=== PATIENT | male | born 1980 | race Caucasian/White ===

== ENCOUNTER → 2017-06-07 | Outpatient (CLI) | payer OTHER ==
[~2017-06-07] MED LIST: AMLO-114 PO; ANXIETY MED; LISI-725 PO; TRAM-10 PO
[2017-06-07 09:52] LABS: COLLECTION PROBLEM N; DAYS OF ABSTINENCE 2; METHOD OF COLLECTION MASTURBATION; SEMEN COLOR GRAY OR GRAY-WHITE (GRY/GRYWHTE); SEMEN TIME OF COLLECTION 815; SEMEN VOLUME 2.9 ML (>1.5); TYPE OF SPECIMEN CONTAINER STERILE
[2017-06-07 14:34] LABS: SPERM VIABILITY STAIN NOT INDICATED % (>58%)
== END | disposition home or self-care (01) ==
LOC: C.LAB 09:24
PROVIDERS: ATTEND Specialist
DX: Z11.3 Encounter for screening for infections with a predominantly sexual mode of transmission (principal); Z11.4 Encounter for screening for human immunodeficiency virus [HIV]; Z11.59 Encounter for screening for other viral diseases

== ENCOUNTER 2024-07-08 08:18 | Observation (INO) ==
--- OUTSIDE RECORDS SUMMARY | 2024-07-08 09:05 | External Medical Summary | Summary of Care ---
Author Name Unknown Organization [facility] Address [address] [facility] [place] [address] Phone [phone] Care Team Providers Care Health Unit Supervisor Name Role Phone Nakul Tavares MD Primary Care Provider + Encounter Details Date Type Department Care Team (Late st Contact Info) Description 04/27/2024 12:20 PM EDT Immunization Pediatrics [facility] [address] [place] [address] Gw, Flu Shot [facility] Pediatrics [address] [facility] [place] [address] Arrived Allergies Active Allergy Reactions Criticality Noted Date Comments Pollen Other (Please comment) 02/28/2018 Runny nose, watery eyes Ragweed Other (Please comment) 02/28/2018 Runny nose, watery eyes documented as of this encounter (statuses as of 04/27/2024) Medications Medication Sig Dispensed Refills Start Date End Date Status CLARITIN 10 MG PO TABS 1 tablet daily Active OCEAN NASAL SPRAY 0.65 % NA SOLNIndications:A cute URI Two sprays in each nostril as needed for nasal dryness or congestion 1 Bottle 5 09/16/2013 Active ONETOUCH DELICA LANCETS 33G MISCIndications:T ype 2 diabetes mellitus with hemoglobin A1c goal of less than 7.0% (HCC) Use up to 4 times a day E 11.9 100 Each 11 04/08/2019 Active Glucose Blood (ONETOUCH VERIO) STRPIndications:T ype 2 diabetes mellitus with hemoglobin A1c goal of less than 7.0% (HCC) Use up to 4 times a day E11.9 100 Box Dosing Unit 11 04/15/2019 Active aspirin 81 MG chewable tabletIndications :Type 2 diabetes mellitus with hemoglobin A1c goal of less than 7.0% (HCC) Take 1 Tab by mouth daily. with food. 100 Tab 5 10/30/2019 Active Albuterol Sulfate HFA 108 (90 Base) MCG/ACT Inhalation Aerosol SolutionIndicatio ns:Suspected COVID-19 virus infection,Shortne ss of breath,Cough INHALE 2 PUFFS BY MOUTH EVERY 4 HOURS NEEDED FOR SHORTNESS OF BREATH OR WHEEZING. 18 g 1 08/26/2020 Active Lisinopril 20 MG Oral Tablet (Prinivil)Indicat ions:HTN, goal below 140/90 TAKE 1 TABLET BY MOUTH EVERY DAY 90 Tablet 3 07/11/2021 Active Atorvastatin Calcium 20 MG Oral Tablet (Lipitor)Indicati ons:Hyperlipidemi a TAKE 1 TABLET BY MOUTH EVERY DAY 90 Tablet 3 07/11/2021 Active Fluticasone Propionate 50 MCG/ACT Nasal Suspension (Flonase)Indicati ons:Post-nasal drip,Nasal sinus congestion 2 SPRAYS EACH NOSTRIL EVERY EVENING 48 mL 1 08/14/2021 Active metFORMIN HCl ER 500 MG Oral Tablet Extended Release 24 Hour (Glucophage XR)Indications:Ty pe 2 diabetes mellitus with hemoglobin A1c goal of less than 7.0% (HCC) TAKE 2 TABLETS BY MOUTH TWICE A DAY 360 Tablet 3 09/30/2021 Active Sertraline HCl 25 MG Oral Tablet (Zoloft)Indicatio ns:PTSD (post-traumatic stress disorder) TAKE 1 TABLET BY MOUTH EVERY DAY 90 Tablet 3 12/06/2021 Active buPROPion HCl ER (XL) 150 MG Oral Tablet Extended Release 24 Hour (Wellbutrin XL)Indications:Mo derate depressive disorder TAKE 1 TABLET BY MOUTH EVERY DAY 90 Tablet 3 12/06/2021 Active amLODIPine Besylate 5 MG Oral Tablet (Norvasc)Indicati ons:HTN, goal below 140/90 TAKE 1 TABLET BY MOUTH EVERY DAY 90 Tablet 3 01/20/2022 Active Ibuprofen 200 MG Oral Tablet (Motrin IB) Take by mouth 4 Tablets every 8 hours as needed for Pain, Moderate. 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 Increased risk for Hereditary Cardiomyopathy. Please click the link below into your browser for a brief summary of current clinical management recommendations for cardiomyopathy. MYH7 Former tobacco use 06/22/2020 Bilateral renal masses 06/22/2020 Marijuana use 06/22/2020 Type 2 diabetes mellitus with diabetic polyneuro martinez 01/23/2020 Recurrent major depressive disorder, in partial remission 02/13/2019 Tobacco use disorder 08/31/2018 Obesity, Class II, BMI 35-39.9, isolated (see ac tual BMI) 08/30/2018 Fatty liver 03/23/2018 ISABELLA (obstructive sleep apnea) 02/28/2018 Type 2 diabetes mellitus wit h hemoglobin A1c goal of less than 7.0% 08/23/2016 History of malignant melanoma of skin 10/01/2014 Multiple pigmented nevi 02/04/2014 PTSD (post-traumatic stress disorder) 12/03/2013 Overview: [place] HTN, goal below 140/90 documented as of this encounter (statuses as of 04/27/2024) Resolved Problems Problem Noted Date Diagnosed Date Resolved Date Inferior vena cava thromboembolism, acute 01/23/2020 03/25/2020 Marijuana use, continuous 11/09/2018 DM type 2, goal HbA1c < 7% 07/01/2017 0 02/28/2018 Overview: glucose 215 Melanoma of shoulder 05/09/2014 018 ISABELLA on CPAP 04/21/2014 02/28/2018 Generalized anxiety disorder 11/02/2011 08/31/2018 HTN, goal to be determined 02/18/2005 0 11/02/2011 documented as of this encounter (statuses as of 04/27/2024) Immunizations Name Administration Dates Next Due COVID-19 mRNA, LNP-s, No Pre serve, 2-Dose Series (Moderna) 10/26/2020,09/28/2020 Hepatitis B, 20+ yrs 11/25/2020,06/22/20 20,09/11/2019,03/17,01/23/2017,08/23/2016 Pneumococcal Polysaccharide PPV23 (Pneumovax) 08/23/2016 Seasonal Influenza Vac., MDV , IM, 0.5 mL (Fluzone) 04/21/2014,04/19/2012 Seasonal Influenza, PF, 6 M & above, IM , (FluLaval or Fluzone) 05/06/2023,06/20/2022,05/04/2021,05/14,08/27/2018,08/21/2017 Seasonal Influenza, Quadriva lent, No Preserve, IM 05/06/2019,05/03/2016,04/29/2015 Seasonal Influenza, Trivalen t, (IIV3), PF, (Fluzone) 04/27/2024 TDAP (age 10 and older)(Boostrix) 06/05/2014 documented as of this encounter Social History Tobacco Use Types Packs/Day Years Used Date Smoking Tobacco: Former Cigarettes Smokeless Tobacco: Former Chew Quit: 11/11/2013 Alcohol Use Standard Drinks/Week Comments Yes 5 (1 standard drink = 0.6 oz pur e alcohol) 12 beers a week PHQ-2 Answer Date Recorded PHQ-2 Score 2 05/18/2020 Hunger Vital Sign Answer Date Recorded Worried About Running Out of Food in the Last Ye ar Never true 05/20/2019 Ran Out of Food in the Last Year Never true 05/20/2019 Utilities Answer Date Recorded Do you have trouble paying y our heating, water, or electric bill? (Adult - for ages 18 years and over) Not on file 01/02/2024 Is your family able to pay t he heat, water, or electric bill? (Household - for ages 0-17 years) Not on file 01/02/2024 Does your family have access to good internet? (Household - for ages 0-17 years) Not on file 01/02/2024 Social Connections Answer Date Recorded How often do you feel lonely or isolated from those around you? (Adult - for ages 18 years and over) Not on file 01/02/2024 Sex and Gender Information Value Date Recorded Sex Assigned at Male 02/13/2019 2:28 PM EDT Gender Identity Male 02/13/2019 2:28 PM EDT Sexual Orientation Choose not to disclose 2018 2:28 PM EDT Job Start Date Occupation Industry Not on file Not on file Not on file documented as of this encounter Plan of Treatment Health Maintenance Due Date Last Done Comments Pneumococcal Vaccine: Pediatrics (0 to 5 Years) and At-Risk Patients (6 to 64 Years) (2 of 2 - PCV) 08/23/2017 08/23/2016 Depression Monitoring 05/18/2021 05/18/2020 Diabetic Foot Exam 05/18/2021 05/18/2020, 0 08/13/2019, 08/27/2018, Additional history exists HbA1c 11/02/2021 05/04/2021, 11/14, 05/18/2020, Additional history exists Albumin/Creatinine Ratio 11/25/2021 021, 02/05/2019, 08/21/2017, Additional history exists B-12 11/25/2021 11/25/2020, 07/18, 02/28/2018 GFR 05/04/2022 05/04/2021, 11/14, 05/18/2020, Additional history exists COVID-19 Vaccine ( season) 2024 10/26/2020, 09/28/2020 Influenza Vaccine (FLU shot) (#1) 2024 04/27/2024, 05/06/2023, 06/20/2022, Additional history exists DTap/Tdap Vaccines (2 - Td or Tdap) 06/05/2024 06/05/2014 Diabetic Eye Exam 08/04/2024 08/04/2023, , 08/23/2019, Additional history exists Lipid Panel 11/25/2025 11/25/2020, 08/2019, 02/13/2019, Additional history exists Hepatitis B Vaccine Completed 11/25/2020, 06/22/2020, 09/11/2019, Additional history exists HPV (Gardasil) Vaccine Aged Out No lo nger eligible based on patient's age to complete this topic MENINGOCOCCAL (MENACTRA/MENVEO) Aged Out No longer eligible based on patient's age to complete this topic documented as of this encounter Medical Devices Not on filedocumented as of this encounter Care Teams Health Unit Supervisor Relationship Specialty Start Date End Date Nakul Tavares MD [address] [place] [address] PCP - General Internal Medicine 09/06/12 documented as of this encounter
--- OUTSIDE RECORDS SUMMARY | 2024-07-08 09:05 | External Medical Summary | Summary of Care ---
Author Name Unknown Organization [facility] Address [address] [place] [address] Phone [phone] Care Team Providers Care Cell Room Supervisor Name Role Phone Nakul Tavares MD Primary Care Provider + Encounter Details Date Type Department Care Team (Late st Contact Info) Description 04/01/2024 Orders Only Outcomes Research Department [address] [place] [address] Rita Sawant CHRA My[facility] Research Other*[id number] Allergies Active Allergy Reactions Criticality Noted Date Comments Pollen Other (Please comment) 02/28/2018 Runny nose, watery eyes Ragweed Other (Please comment) 02/28/2018 Runny nose, watery eyes documented as of this encounter (statuses as of 04/01/2024) Medications Medication Sig Dispensed Refills Start Date [...] as of this encounter (statuses as of 04/01/2024) Active Problems Problem Noted Date Diagnosed Date 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 Increased risk for Hereditary Cardiomyopathy. Please click [...] as of this encounter (statuses as of 04/01/2024) Resolved Problems Problem Noted Date Diagnosed Date [...] as of this encounter (statuses as of 04/01/2024) Immunizations Name Administration Dates Next Due COVID-19 mRNA, LNP-s, No Pre serve, 2-Dose Series (Moderna) 10/26/2020,09/28/2020 Hepatitis B, 20+ yrs 11/25/2020,06/22/20 20,09/11/2019,03/17,01/23/2017,08/23/2016 Pneumococcal Polysaccharide PPV23 (Pneumovax) 08/23/2016 Seasonal Influenza, PF, 6 M & above, IM , (FluLaval or Fluzone) 05/06/2023,06/20/2022,05/04/2021,05/14,08/27/2018,08/21/2017 Seasonal Influenza, Quadriva lent, No Preserve, IM 05/06/2019,05/03/2016,04/29/2015 Seasonal Influenza, Trivalen t, (IIV3), with Preserv, (Fluzone) 04/21/2014,04/19/2012 TDAP (age 10 and older)(Boostrix) 06/05/2014 documented [...] as of this encounter Plan of Treatment Scheduled Orders Name Type Priority Associated Diagnoses Orde r Schedule MYCODE SUBSEQUENT ADULT Lab Routine MyCode Research Other*[id number] Every 6 Months for 2 Occurrences starting 04/01/2024 until 04/21/2025 Health Maintenance Due Date Last Done Comments Pneumococcal Vaccine: Pediatrics (0 to 5 Years) and At-Risk Patients (6 to 64 Years) (2 of 2 - PCV) 08/23/2017 08/23/2016 Depression Monitoring 05/18/2021 05/18/2020 Diabetic Foot Exam 05/18/2021 05/18/2020, 0 08/13/2019, 08/27/2018, Additional history exists Diabetic Eye Exam 10/26/2021 10/26/2020, , 02/05/2019, Additional history exists HbA1c 11/02/2021 05/04/2021, 11/14, 05/18/2020, Additional history exists Albumin/Creatinine Ratio 11/25/2021 021, 02/05/2019, 08/21/2017, Additional history exists B-12 11/25/2021 11/25/2020, 07/18, 02/28/2018 GFR 05/04/2022 05/04/2021, 11/14, 05/18/2020, Additional history exists COVID-19 Vaccine ( - 2022- season) 2024 10/26/2020, 09/28/2020 Influenza Vaccine (FLU shot) (#1) 2024 05/06/2023, 06/20/2022, 05/04/2021, Additional history exists DTap/Tdap Vaccines (2 - Td or Tdap) 06/05/2024 06/05/2014 Lipid Panel 11/25/2025 11/25/2020, 08/2019, 02/13/2019, Additional [...] Not on filedocumented as of this encounter Visit Diagnoses Diagnosis MyCode Research Other*[id number] documented in this encounter Care Teams Cell Room Supervisor Relationship Specialty Start Date End Date Nakul Tavares MD [address] [place] [address] PCP - General Internal Medicine 09/06/12 documented as of this encounter
[2024-07-08] MEDS: KETOROLAC TROMETHAMINE 15 MG/ML VIAL IV STA (09:12)
[2024-07-08] MEDS: ONDANSETRON INJ 2 MG/ML 2 ML VIAL IV STA (09:13)
[2024-07-08] MEDS: HYDROmorphone INJ 0.5 MG/0.5 ML SYR IV PRN (09:14)
[2024-07-08] MEDS: amLODIPine BESYLATE 5 MG TAB PO ONE (09:16)
[2024-07-08] MEDS: lisinopril 20 MG TAB PO STA (09:23)
[2024-07-08 09:40] LABS: Basophils # (auto) 0.11 K/uL (0.00-0.20); Basophils % (auto) 1.1 %; Eosinophils # (auto) 0.35 K/uL (0.00-0.50); Eosinophils % (auto) 3.5 %; Hematocrit (blood only) 44.9 % (42.0-52.0); Hemoglobin 15.7 g/dl (14.0-18.0); Immature Granulocytes # (auto) 0.08 K/uL (0.01-0.20); Immature Granulocytes % (auto) 0.8 %; Lymphocytes # (auto) 2.31 K/uL (1.20-3.40); Lymphocytes % (auto) 23.1 %; Mean Corpuscular Hemoglobin 30.6 pg (25.0-34.0); Mean Corpuscular Volume 87.5 fL (80.0-100.0); Mean Platelet Volume 9.7 fL (9.4-12.4); Monocytes # (auto) 0.79 K/uL (0.11-0.59); Monocytes % (auto) 7.9 %; Neutrophils # (auto) 6.38 K/uL (1.40-6.50); Neutrophils % (auto) 63.6 %; Platelet Count 224 K/uL (130-400); RDW Coefficient of Variation 12.8 % (11.5-14.5); RDW Standard Deviation 40.5 fL (36.4-46.3); Red Blood Count 5.13 M/uL (4.70-6.10); White Blood Count 10.02 K/ul (4.8-10.8)
[2024-07-08 09:41] LABS: Alanine Aminotransferase 25 U/L (7-52); Albumin Globulin Ratio 1.7 (0.9-2); Albumin Level 4.7 gm/dl (3.4-5.0); Alkaline Phosphatase 59 U/L (34-104); Anion Gap 8 (3-11); Aspartate Aminotransferase 18 U/L (13-39); BUN Creatinine Ratio 19.1 (10-20); Bilirubin,Total 0.7 mg/dl (0.2-1.0); Blood Urea Nitrogen 13 mg/dl (6-23); C Reactive Protein 0.76 mg/dl (0-0.5); Calcium 9.2 mg/dl (8.6-10.3); Carbon Dioxide 29 mmol/L (21-32); Chloride 101 mmol/L (98-107); Globulin 2.7 gm/dl (2.5-4.0); Glucose 234 mg/dl (70-99(Fasting)); Potassium 3.5 mmol/L (3.5-5.1); Sodium 138 mmol/L (136-145); Total Protein 7.4 gm/dl (6.0-8.3)
--- NOTE | 2024-07-08 09:46 | Emergency Department Note ---
Impression & Plan Low back pain, Left sided sciatica, Hyperglycemia ED Provider Note NAME: JACINTO GONZALEZ AGE: 44 SEX: Male INFORMANT: Patient ED PROVIDER(S): Brenton Espinoza MD CHIEF COMPLAINT: Back pain PLAN: Disposition: Admitted Outpatient prescription management: none Referral: None MEDICAL DECISION MAKING: Patient present because of back pain. Had a positive straight leg raise. Given the numbness situation a MRI was deemed warranted. MR imaging was done after the patient was given IV Dilaudid and Zofran. He did require multiple doses of IV Dilaudid. Unfortunately MRI does reveal a disc herniation and this does abut the nerve root. This would explain the patient's symptomatology. He is quite uncomfortable and is having difficulty walking. I did consult with orthospine, Dr. Lim. He did evaluate the patient in the ER. He felt the patient would require operative intervention and admitted the patient. I refer you to the EMR for further details. Care/management discussed with: nursing services manager Level of care consideration(s): After review of the information above and other included data, I feel the patient requires escalation of care to admission Triage Nursing notes: reviewed and agree them. Vital Signs: reviewed and remarkable for no significant abnormalities Additional History obtained from: none Chronic Medical/Social Conditions affecting care: Hypertension, diabetes Prior/ Outside/ External records reviewed: MRI report from 8 years ago reviewed from the [facility] system. Patient has some degenerative changes but no significant disc issues. No stenosis appreciated at that time. Differential Diagnosis: Musculoskeletal, disc herniation, fracture, metastatic disease, cord compression, discitis, sciatica, cauda equina, infection, aortic disease, renal colic, gastrointestinal, as well as other pathologies. Diagnostics, independently interpreted by me: ECG: none Cardiac Monitoring: Cardiac monitoring ordered by me: The patient was placed on continuous cardiac monitoring and observed. It revealed a normal sinus rhythm at 68 beats per minute without ectopy or evidence of dysrhythmia. Medical decision rules: none Imaging studies: MRI as above. L5-S1 left disc herniation. I refer you to the EMR for further details. HPI: 44 year old Male arrives for evaluation of low back pain. This started about a week ago and is worsening over the last few days. The patient also notes the following associated symptoms, tingling in the groin area and difficulty walking. The patient has found no relieving factors. Current pain is rated as 8/10. Pain is worse with sitting or stretching the legs. Pt denies trauma, LOC, headache, neck pain, fevers, chills, malaise, night sweats, weight loss, history of malignancy, chest pain, breathing difficulties, abdominal pain, bowel or bladder dysfunction, weakness, urinary symptoms, or other complaints. PAST MEDICAL HISTORY: See Below, hypertension, diabetes PAST SURGICAL HISTORY: See Below, SOCIAL HISTORY: See Below, former smoker HOME MEDICATIONS: See Below ALLERGIES: See Below VITALS: See Below PHYSICAL EXAMINATION: GENERAL: Awake, alert, uncomfortable-appearing, in no distress HENT: Normocephalic, atraumatic. Oropharynx unremarkable. EYES: Normal conjunctiva. Sclera non-icteric. NECK: Inspection normal. Non-tender. Supple. No nuchal rigidity. FROM. No masses. RESPIRATORY: Clear to auscultation. No wheezes. No rales. Normal respiratory effort. CARDIAC: Normal rate. Normal rhythm. No murmurs. No rubs. Extremities warm and well perfused. Pulses equal. No JVD. GI: Soft, non-distended. No tenderness to palpation. No rebound or guarding. No masses. RECTAL: Deferred. MUSCULOSKELETAL: Atraumatic. Chest examination reveals no tenderness. The back is symmetrical on inspection without obvious abnormality. There is no CVA tenderness to palpation. No joint edema. There is tenderness in the lumbar region and left sciatic notch. LOWER EXTREMITIES: Calves are equal size bilaterally and non-tender. No edema. No discoloration. NEURO: Normal sensorium. Positive straight leg raise which is worse on the left. 2+ patellar reflex on the left and 1+ on the right. Patient has subjective tingling in the saddle region. Sensation is intact in the distal lower extremities. Unable to assess gait secondary to severe pain. SKIN: No rash or jaundice noted. PROCEDURES: none CRITICAL CARE: none OBSERVATION NOTE: none Past Med/Surg History Problem List (Updated 07/08/24 @ 16:00 by Garrett Lim DO) Lumbar disc herniation with radiculopathy Hyperglycemia (Acute) Left sided sciatica (Acute) Low back pain (Acute) Cardiomyopathy Exertional chest pain Strain of foot Angiomyolipoma Complex renal cyst Diabetic peripheral neuropathy Obesity Hyperlipidemia Depression Type 2 diabetes mellitus Hypertension (Chronic) Skin problem (Chronic) Bronchitis (Acute) Encounter for pre-operative examination Medical History IBS (irritable bowel syndrome) Back pain Anxiety Diabetes mellitus, type 2 Sleep apnea Hypertension Surgical History Hx of melanoma excision Hx of wisdom tooth extraction Hx of tonsillectomy Family History Grandmother Family history of diabetes mellitus Grandfather Family history of diabetes mellitus Family/Other Cancer Family/Other Hypertension Social History Smoking Status: Former smoker Tobacco Type: Cigarettes Do You Dip or Chew Tobacco: No (HX OF - QUIT 3 YRS AGO); Hx Alcohol Use: Yes Alcohol type: beer Hx Substance Use: No Preferred Language: Maltese Communication Ability: Effective Visual Impairment: No Limitations Mineral Surveyor Required: No Beliefs That Will Affect Care: None Current Living Situation: Family Feels Safe at Home: Yes Assistive Devices: None Allergies Allergies Allergy/AdvReac Type Severity Reaction Status Date / Time No Known Allergies Allergy Mild Verified 03/15/24 11:36 Home Meds Home Medications Medication Instructions Recorded Confirmed amlodipine 5 mg tablet 5 mg PO DAILY 04/18/18 07/08/24 loratadine 10 mg tablet (Claritin) 10 mg PO DAILY PRN ALLERGIES 04/18/18 07/08/24 lisinopril 20 mg tablet 20 mg PO DAILY 05/24/19 07/08/24 atorvastatin 20 mg tablet 80 mg PO DAILY 03/15/24 07/08/24 bupropion HCl 150 mg 24 hr tablet, 150 mg PO QAM 03/15/24 07/08/24 extended release metformin 500 mg tablet 1,000 mg PO QAM 03/15/24 07/08/24 sertraline 150 mg capsule 150 mg PO DAILY 03/15/24 07/08/24 aspirin 81 mg tablet,delayed 81 mg PO DAILY 07/08/24 07/08/24 release Results & Data (ED) Vital Signs Vital Signs - 24 hr 07/08/24 08:29 07/08/24 09:18 07/08/24 10:00 Temperature 36.3 C L Temperature Source Temporal Artery Scan Pulse Rate 88 Pulse Rate [Finger] 88 Respiratory Rate 20 20 Respiratory Effort / Characteristics Non-Labored Spontaneous Respiratory Depth Normal Respiratory Pattern Regular Blood Pressure 203/111 H Blood Pressure [Left Arm] 162/110 H Blood Pressure Mean 141 Blood Pressure Mean [Left Arm] 127 Blood Pressure Position [Left Arm] Lying Pulse Oximetry 98 98 94 Oxygen Delivery Method Room Air Room Air Room Air Sepsis Recent Fever Within 48 Hours No Sepsis New/Unexplained Change in Mental Status N/A Sepsis Action Taken by Nursing No Action Required 07/08/24 12:00 07/08/24 14:38 07/08/24 16:00 Temperature Temperature Source Pulse Rate Pulse Rate [Finger] 88 88 68 Respiratory Rate 20 18 16 Respiratory Effort / Characteristics Spontaneous Respiratory Depth Normal Respiratory Pattern Blood Pressure Blood Pressure [Left Arm] 155/94 H 145/80 H 154/69 H Blood Pressure Mean Blood Pressure Mean [Left Arm] 114 101 97 Blood Pressure Position [Left Arm] Lying Sitting Semi-fowlers Pulse Oximetry 96 94 94 Oxygen Delivery Method Room Air Room Air Room Air Sepsis Recent Fever Within 48 Hours Sepsis New/Unexplained Change in Mental Status Sepsis Action Taken by Nursing Laboratory Data 07/08/24 08:40 07/08/24 08:40 Lab Results 07/08/24 Range/Units 08:40 WBC 10.02 (4.8-10.8) K/ul RBC 5.13 (4.70-6.10) M/uL Hgb 15.7 (14.0-18.0) g/dl Hct 44.9 (42.0-52.0) % MCV 87.5 (80.0-100.0) fL MCH 30.6 (25.0-34.0) pg MCHC 35.0 (32.0-36.0) g/dL RDW Std Deviation 40.5 (36.4-46.3) fL RDW Coeff of [place] 12.8 (11.5-14.5) % Plt Count 224 (130-400) K/uL MPV 9.7 (9.4-12.4) fL Immature Gran % (Auto) 0.8 % Neut % (Auto) 63.6 % Lymph % (Auto) 23.1 % [place] % (Auto) 7.9 % Eos % (Auto) 3.5 % Baso % (Auto) 1.1 % Neut # (Auto) 6.38 (1.40-6.50) K/uL Lymph # (Auto) 2.31 (1.20-3.40) K/uL [place] # (Auto) 0.79 H (0.11-0.59) K/uL Eos # (Auto) 0.35 (0.00-0.50) K/uL Baso # (Auto) 0.11 (0.00-0.20) K/uL Immature Gran # (Auto) 0.08 (0.01-0.20) K/uL Sodium 138 (136-145) mmol/L Potassium 3.5 (3.5-5.1) mmol/L Chloride 101 (98-107) mmol/L Carbon Dioxide 29 (21-32) mmol/L Anion Gap 8 (3-11) BUN 13 (6-23) mg/dl Creatinine 0.68 (0.6-1.4) mg/dl Est Cr Clr Drug Dosing Not Reportable eGFR 117.55 BUN/Creatinine Ratio 19.1 (10-20) Glucose 234 H (70-99(Fasting)) mg/dl Calcium 9.2 (8.6-10.3) mg/dl Total Bilirubin 0.7 (0.2-1.0) mg/dl AST 18 (13-39) U/L ALT 25 (7-52) U/L Alkaline Phosphatase 59 (34-104) U/L C-Reactive Protein 0.76 H (0-0.5) mg/dl Total Protein 7.4 (6.0-8.3) gm/dl Albumin 4.7 (3.4-5.0) gm/dl Globulin 2.7 (2.5-4.0) gm/dl Albumin/Globulin Ratio 1.7 (0.9-2) Administered Medications Hydromorphone HCl (Hydromorphone Inj 0.5 Mg/0.5 Ml Syr) 0.5 mg IV Q15M PRN PRN Reason: Pain Stop: 07/22/24 08:52 Last Admin: 07/08/24 17:20 Dose: 0.5 mg Documented By: Admin: 07/08/24 14:36 Dose: 0.5 mg Documented By: Admin: 07/08/24 12:19 Dose: 0.5 mg Documented By: Admin: 07/08/24 09:14 Dose: 0.5 mg Documented By: QGV Discontinued Medications Amlodipine Besylate (Amlodipine Besylate 5 Mg Tab) 5 mg PO NOW ONE Stop: 07/08/24 09:00 Last Admin: 07/08/24 09:16 Dose: 5 mg Documented By: QGV Ketorolac Tromethamine (Ketorolac Tromethamine 15 Mg/Ml Vial) 15 mg IV ONE STA Stop: 07/08/24 08:54 Last Admin: 07/08/24 09:12 Dose: 15 mg Documented By: QGV Lisinopril (Lisinopril 20 Mg Tab) 20 mg PO NOW STA Stop: 07/08/24 09:00 Last Admin: 07/08/24 09:23 Dose: 20 mg Documented By: QGV Ondansetron HCl (Ondansetron Inj 2 Mg/Ml 2 Ml Vial) 4 mg IV NOW STA Stop: 07/08/24 08:54 Last Admin: 07/08/24 09:13 Dose: 4 mg Documented By: QGV Imaging Data Radiologist's Impression: Lumbar Spine MRI 07/08/24 09:10 MR lumbar spine wo con CLINICAL HISTORY: Severe low back pain, groin numbness, L sciatica TECHNIQUE: Multiplanar sequences through the lumbar spine were obtained, without intravenous contrast. Comparison: Comparison is made to lumbar spine radiograph 05/01/2016 FINDINGS: The alignment is anatomical. L1-L2: No significant abnormality. L2-L3: No significant abnormality. L3-L4: Focal posterior disc bulge is seen without significant canal or neuroforaminal stenosis. L4-L5: Focal posterior disc protrusion without significant canal or neuroforaminal stenosis. L5-S1: Posterior oriented, left greater than right disc protrusion impinges upon the exiting left S2 nerve root. The spinal ligaments are intact, without evidence of disruption or abnormal signal intensity. The spinal cord is normal in signal intensity and there is no evidence of cord contusion. There is no evidence of an extradural, intradural, extramedullary or intramedullary lesion. Visualized soft tissues are normal. IMPRESSION: Focal disc protrusion at L5-S1 impinges upon the exiting left S2 nerve root. ACT 112: Negative or not required by law. Electronically signed by: Pool Barbour M.D. 07/08/2024 11:57 AM Discharge Plan Visit Data Chief Complaint: Back Injury/Pain Stated Complaint: BACK PAIN ED Provider: Brenton Espinoza Discharge Problem: Low back pain, Left sided sciatica, Hyperglycemia Discharge Instructions Interventions: ED Discharge Assessment Last Done: 07/08/24 17:28 Forms Stand Alone Forms: My [facility] Prescriptions Prescriptions: No Action bupropion HCl 150 mg tablet extended release 24 hr 150 mg PO QAM sertraline 150 mg capsule 150 mg PO DAILY amlodipine 5 mg Tablet 5 mg PO DAILY loratadine [Claritin] 10 mg Tablet 10 mg PO DAILY PRN (Reason: ALLERGIES) lisinopril 20 mg tablet 20 mg PO DAILY atorvastatin 20 mg tablet 80 mg PO DAILY metformin 500 mg tablet 1,000 mg PO QAM aspirin [Aspir-81] 81 mg Tablet,Delayed Release (Dr/Ec) 81 mg PO DAILY Referrals Referrals: [facility] [Primary Care Provider] -
--- NOTE | 2024-07-08 12:00 | Magnetic Resonance Report ---
MR lumbar spine wo con CLINICAL HISTORY: Severe low back pain, groin numbness, L sciatica TECHNIQUE: Multiplanar sequences through the lumbar spine were obtained, without intravenous contrast . Comparison: Comparison is made to lumbar spine radiograph 05/01/2016 FINDINGS: The alignment is anatomical. L1-L2: No significant abnormality. L2-L3: No significant abnormality. L3-L4: Focal posterior disc bulge is seen without significant canal or neuroforaminal stenosis. L4-L5: Focal posterior disc protrusion without significant canal or neuroforaminal stenosis. L5-S1: Posterior oriented, left greater than right disc protrusion impinges upon the exiting left S2 nerve root. The spinal ligaments are intact, without evidence of disruption or abnormal signal intensity. The spi nal cord is normal in signal intensity and there is no evidence of cord contusion. There is no eviden ce of an extradural, intradural, extramedullary or intramedullary lesion. Visualized soft tissues are normal. IMPRESSION: Focal disc protrusion at L5-S1 impinges upon the exiting left S2 nerve root. ACT 112: Negative or not required by law. Electronically signed by: Pool Barbour M.D. 07/08/2024 11:57 AM
--- NOTE | 2024-07-08 16:01 | History & Physical Report ---
Date of Service July 08, 2024 Assessment & Plan (1) Lumbar disc herniation with radiculopathy: Plan: Assessment lumbar discrimination L5-S1 with a fragment migrating caudally on the left creating significant neural encroachment. Plan at this time patient is requiring IV narcotics to control his pain. We are hesitant to be aggressive with steroids in light of his underlying diabetes. He is unable to ambulate despite IV narcotics. We discussed surgical invention. Would require a lumbar laminotomy L5-S1 the left with excision of herniated free fragments. Respective pros cons alternatives all in detail. Risk include but not limited to anesthesia blindness to process nerve damage blood loss requiring transfusion infection requiring reoperation this with the marked improvement of his left sciatica. He understands that he is at risk for recurrent disc herniation and what this may entail for future surgery. At this point we will admit the hospital for pain control and evaluation by medicine and plan for urgent laminotomy discectomy L5-S1 the left in the a.m. History of Present Illness Chief Complaint: Left leg pain and weakness Primary Care Provider: [facility] This is a 44-year-old male who presents emerged from today with severe left leg pain weakness and inability to ambulate. 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 This resolved but unfortunately he then began experiencing severe left leg pain. He was unable to ambulate and his could not manage him at home and he presents to the emergency room. His pain involves lumbosacral junction rating into left buttock posterior lateral thigh into the calf and foot. The right lower extremity is asymptomatic. He has had several doses of IV Dilaudid while in the emergency room and still unable to stand and ambulate. He states the pain radiates into his left testicle and groin. Allergies Allergy/AdvReac Type Severity Reaction Status Date / Time No Known Allergies Allergy Mild Verified 03/15/24 11:36 Home Medications Medication Instructions Recorded Confirmed Type amlodipine 5 mg tablet 5 mg PO DAILY 04/18/18 07/08/24 History loratadine 10 mg tablet (Claritin) 10 mg PO DAILY PRN ALLERGIES 04/18/18 07/08/24 History lisinopril 20 mg tablet 20 mg PO DAILY 05/24/19 07/08/24 History atorvastatin 20 mg tablet 80 mg PO DAILY 03/15/24 07/08/24 History bupropion HCl 150 mg 24 hr tablet, 150 mg PO QAM 03/15/24 07/08/24 History extended release metformin 500 mg tablet 1,000 mg PO QAM 03/15/24 07/08/24 History sertraline 150 mg capsule 150 mg PO DAILY 03/15/24 07/08/24 History aspirin 81 mg tablet,delayed 81 mg PO DAILY 07/08/24 07/08/24 History release Past Med/Surg History Problem List (Updated 07/08/24 @ 16:00 by Garrett Lim DO) Lumbar disc herniation with radiculopathy Hyperglycemia (Acute) Left sided sciatica (Acute) Low back pain (Acute) Cardiomyopathy Exertional chest pain Strain of foot Angiomyolipoma Complex renal cyst Diabetic peripheral neuropathy Obesity Hyperlipidemia Depression Type 2 diabetes mellitus Hypertension (Chronic) Skin problem (Chronic) Bronchitis (Acute) Encounter for pre-operative examination Medical History IBS (irritable bowel syndrome) Back pain Anxiety Diabetes mellitus, type 2 Sleep apnea Hypertension Surgical History Hx of melanoma excision Hx of wisdom tooth extraction Hx of tonsillectomy Family History Grandmother Family history of diabetes mellitus Grandfather Family history of diabetes mellitus Family/Other Cancer Family/Other Hypertension Social History Smoking Status: Former smoker Tobacco Type: Cigarettes Do You Dip or Chew Tobacco: No (HX OF - QUIT 3 YRS AGO); Hx Alcohol Use: Yes Alcohol type: beer Hx Substance Use: No Preferred Language: Singaporean Communication Ability: Effective Visual Impairment: No Limitations Aix Architect Required: No Beliefs That Will Affect Care: None Current Living Situation: Family Feels Safe at Home: Yes Assistive Devices: None Physical Exam Physical Exam: On exam patient is most comfortable in bed with the head elevated approximately 20 degrees. He has evidence of a contralateral straight leg raise on the right. Significant straight leg raise on the left with a positive Lasegue's maneuver. On the right he is a +5-5 plantarflexion dorsiflexion centralizes longus quadriceps. The left he has a 4/5 left plantarflexion dorsiflexion extensor houses longus of 4+/5. Quadriceps are 5/5 sensory appears to be symmetric. Deep tendon flexes diminished. Results & Data Results & Data Vital Signs (Past 12 Hours) Vital Signs Temp Pulse Pulse Resp BP BP Pulse Ox 07/08/24 14:38 88 18 145/80 H 94 07/08/24 12:00 88 20 155/94 H 96 07/08/24 10:00 88 20 162/110 H 94 07/08/24 09:18 98 07/08/24 08:29 36.3 C L 88 20 203/111 H 98 O2 Del Method 07/08/24 14:38 Room Air 07/08/24 12:00 Room Air 07/08/24 10:00 Room Air 07/08/24 09:18 Room Air 07/08/24 08:29 Room Air Code Status & VTE Plan VTE Prophylaxis Plan VTE Prophylaxis will be ordered: Yes
--- NOTE | 2024-07-08 17:23 | Communication Note ---
Date of Service: July 08, 2024 Patient has a history of cardiac workup in december 2023 when investigating c/o exertional dyspnea. 1 week apart he had SHIRA and exercise stress test with d rastically different results (EF 25% vs 57%). He did see [facility] [place] in February who recommended repeat of the echo with possible cardiac cath depending on results but unfortunately this did not happen. He does still have some exertional chest pain but denies any overt signs of CHF. Given the very disparate results in his cardiac workup and the presence of several cardiac risk factors, I think it is prudent to evaluate his LV function prior to anesthetic and surgery. I have requested a cardiology consultation and a SHIRA this evening and spoken with Dr Lim that we will likely hold off on proceeding to the OR in the morning until this can be evaluated, hopefully this evening.
[2024-07-08] MEDS ORDERED: HYDROmorphone INJ 0.5 MG/0.5 ML SYR IV PRN (18:04)
[2024-07-08] MEDS ORDERED: ONDANSETRON 4 MG OD TAB PO PRN (18:04)
[2024-07-08] MEDS ORDERED: PROMETHAZINE 12.5 MG/50.5 ML BAG IV PRN (18:04)
[2024-07-08] MEDS ORDERED: ONDANSETRON INJ 2 MG/ML 2 ML VIAL IV PRN (18:04)
[2024-07-08] MEDS ORDERED: LORazepam 0.5 MG TAB PO PRN (18:04)
[2024-07-08] MEDS ORDERED: ACETAMINOPHEN 1,000 MG/100 ML VIAL IV PRN (18:04)
[2024-07-08] MEDS ORDERED: ACETAMINOPHEN 500 MG TAB PO PRN (18:04)
[2024-07-08] MEDS ORDERED: LORazepam 2 MG/1 ML VIAL IV PRN (18:04)
[2024-07-08] MEDS ORDERED: PHARMACY GLYCEMIC MGMT CONSULT PRN (18:04)
[2024-07-08] MEDS ORDERED: NALOXONE HCL 0.4 MG/1 ML VIAL/CARP IV PRN (18:04)
[2024-07-08] MEDS ORDERED: METOCLOPRAMIDE HCL INJ 5 MG/ML 2 ML VIAL IV PRN (18:04)
--- NOTE | 2024-07-08 19:28 | Hospitalist Consultation ---
Date of Consultation July 08, 2024 Assessment & Plan (1) Lumbar disc herniation with radiculopathy: (2) Cardiomyopathy: (3) Type 2 diabetes mellitus: (4) Hyperlipidemia: (5) PTSD (post-traumatic stress disorder): Plan 44 yo male PMHx T2DM, HTN, HLD, PTSD, cardiomyopathy admitted due to lumbar disc herniation with plan for laminectomy #Lumbar Disc Herniation Acetaminophen 1g q8h Dilaudid 0.5-1mg q3h PRN tramadol PRN #Cardiomyopathy Disparate studies in 12/2023 without more recent echo Cardiology consult Echo ordered #T2DM hold metformin pharmacy glycemic consult #HTN continue amlodipine hold lisinopril #PTSD continue Wellbutrin continue sertraline FENGI: T2DM, Heart healthy, NPO after midnight Code status: full code DVT prophylaxis: SCDs Isolation: none Disposition: med/surg Supervising Physician Co-Signing Physician Notes Patient seen and examined, chart reviewed, case discussed with Jaiden Stephens and I agree with the assessment and plan as above except as otherwise noted Labs and images reviewed 44-year-old male [facility] patient to presents for anticipated laminectomy with Dr. Lim. Does have a history of nonischemic cardiomyopathy of unknown etiology, EF 25 to 30% with improvement to 57% but did not have his subsequent follow-up echo. No anginal symptoms or heart failure symptoms. History of hypertension, type 2 diabetes well-controlled on metformin not on insulin, and hyperlipidemia. Agree with sign scale insulin and glycemic consult for diabetes management, 4 minutes been held. Amlodipine continued for hypertension, lisinopril held preoperatively. Cardiology is consulted for preop evaluation given history of cardiomyopathy. Agree with management of chronic medical issues as above. History of Present Illness Attending Physician: Garrett Lim DO History of Present Illness 44 yo male PMHx T2DM on metformin, HTN, HLD, PTSD, undifferentiated cardiomyopathy here with for severe left leg pain and weakness. Plan is for OR with ortho spine tomorrow. Hospital medicine is consulted for medication management. Pt does have a history of undifferentiated cardiomyopathy that was worked up in the outpatient setting. He had an echo that estimated EF of 25-30% followed by a nuclear stress test that showed EF of 57%. In February, it was recommended that he have repeat echo but this was not done. Denies anginal symptoms at this time. Feels his pain is adequately controlled on his current pain regimen. Allergies Allergy/AdvReac Type Severity Reaction Status Date / Time No Known Allergies Allergy Mild Verified 03/15/24 11:36 Home Medications Medication Instructions Recorded Confirmed Type amlodipine 5 mg tablet 5 mg PO DAILY 04/18/18 07/08/24 History loratadine 10 mg tablet (Claritin) 10 mg PO DAILY PRN ALLERGIES 04/18/18 07/08/24 History lisinopril 20 mg tablet 20 mg PO DAILY 05/24/19 07/08/24 History atorvastatin 20 mg tablet 80 mg PO DAILY 03/15/24 07/08/24 History bupropion HCl 150 mg 24 hr tablet, 150 mg PO QAM 03/15/24 07/08/24 History extended release metformin 500 mg tablet 1,000 mg PO QAM 03/15/24 07/08/24 History sertraline 150 mg capsule 150 mg PO DAILY 03/15/24 07/08/24 History aspirin 81 mg tablet,delayed 81 mg PO DAILY 07/08/24 07/08/24 History release Patient History Medical History IBS (irritable bowel syndrome) Back pain Anxiety Diabetes mellitus, type 2 Sleep apnea Hypertension Surgical History Hx of melanoma excision Hx of wisdom tooth extraction Hx of tonsillectomy Family History Grandmother Family history of diabetes mellitus Grandfather Family history of diabetes mellitus Family/Other Cancer Family/Other Hypertension Social History Smoking Status: Never smoker Tobacco Type: Cigarettes Second Hand Exposure: No; Do You Dip or Chew Tobacco: No; Tobacco Cessation Education Requested by Patient: No Hx Alcohol Use: Yes Alcohol type: beer Hx Substance Use: No Preferred Language: [place] Communication Ability: Effective Visual Impairment: No Limitations Van Cdl Driver Required: No Beliefs That Will Affect Care: None Current Living Situation: Spouse Other Information That Helps Us Care for You: No Feels Safe at Home: Yes Safety Concerns: Feels Safe At This Time Assistive Devices: None Review of Systems Review of Systems: reviewed, per HPI Physical Exam Physical Exam: Constitutional: well-appearing, no acute distress HEENT: NCAT, no conjunctival injection CV: regular rhythm, no murmur appreciated, extremities well-perfused, no LE edema Resp: CTABL, no wheezes/rales/rhonchi appreciated, no increased work of breathing GI: nondistended MSK: no gross deformities appreciated Skin: warm, dry, no rash appreciated Neuro: alert, oriented Results & Data Results & Data Vital Signs (Past 12 Hours) Vital Signs Temp Pulse Pulse Resp BP BP Pulse Ox 07/08/24 18:26 36.4 C L 76 20 171/87 H 96 07/08/24 16:00 68 16 154/69 H 94 07/08/24 14:38 88 18 145/80 H 94 07/08/24 12:00 88 20 155/94 H 96 07/08/24 10:00 88 20 162/110 H 94 07/08/24 09:18 98 07/08/24 08:29 36.3 C L 88 20 203/111 H 98 O2 Del Method 07/08/24 18:26 Room Air 07/08/24 16:00 Room Air 07/08/24 14:38 Room Air 07/08/24 12:00 Room Air 07/08/24 10:00 Room Air 07/08/24 09:18 Room Air 07/08/24 08:29 Room Air Resident Activity Tracking Resident Involvement: Resident Care Provided Care Provided: Adult Hospital Medicine
[2024-07-08] MEDS: HYDROmorphone INJ 1 MG/ML SYRINGE IV PRN (21:26)
[2024-07-09] MEDS: INSULIN ASPART PER UNIT CHARGE SC SCH (00:02)
[2024-07-09] MEDS ORDERED: ONDANSETRON INJ 2 MG/ML 2 ML VIAL ONE (07:47)
[2024-07-09] MEDS ORDERED: LIDOCAINE 2% 2 ML VIAL/AMP(20MG/ML) INFIL ONE (07:47)
[2024-07-09] MEDS ORDERED: DEXAMETHASONE SOD INJ 4 MG/ML VIAL ONE (07:47)
[2024-07-09] MEDS ORDERED: PROPOFOL IV EMULSION 10 MG/ML 20 ML VIAL IV ONE (07:47)
[2024-07-09] MEDS ORDERED: MIDAZOLAM HCL 1 MG/ML 2ML VIAL ONE (07:48)
[2024-07-09] MEDS ORDERED: ROCURONIUM BROMIDE 10 MG/ML 5 ML VIAL IV ONE (07:48)
[2024-07-09] MEDS ORDERED: SODIUM CHLORIDE 0.9% PF INJ 10 ML VIAL ONE ×2 (07:48→09:52)
[2024-07-09] MEDS ORDERED: HYDROmorphone INJ 2 MG/ML SYR/VIAL ONE (07:48)
[2024-07-09] MEDS ORDERED: LARYING-O-JET KIT (LTA) ONE (07:48)
[2024-07-09 07:53] LABS: Estimated Average Glucose 126 mg/dl
[2024-07-09] MEDS ORDERED: lisinopril 20 MG TAB PO SCH (09:00)
[2024-07-09] MEDS ORDERED: metFORMIN HCL 500 MG TAB PO SCH (09:00)
--- NOTE | 2024-07-09 09:06 | History & Physical Bridge Note ---
Date of Service July 09, 2024 History & Physical Bridge Note I have examined the patient, reviewed the History & Physical and in the interval since the performance of the History & Physical I have noted the following changes of clinical significance: no changes noted Patient has severe lumbar radiculopathy with inability ambulate requiring significant narcotic medications just to control his symptoms. Subsequently recommending emergent laminectomy L5-S1 the left.
[2024-07-09] MEDS ORDERED: Nursing to Pharmacy Communication SCH (09:15)
--- NOTE | 2024-07-09 09:24 | XCELERA ---
[id number]
--- NOTE | 2024-07-09 09:25 | Anesthesiology Consultation ---
Date of Service July 09, 2024 Assessment & Plan (1) Encounter for pre-operative examination: Chart Review Chart Review: Acceptable Risk for Surgery and Patient NOT seen in Pre Admission Testing Consults Requested none Additional Notes patient with previous echo showing reduced EF 25%, repeat echo ordered this morning, consultation with geophysical data technician indicated EF recovered to ~45-50%. Will proceed with GA History Surgery Operation Date: 07/09/24 07:45 Proposed Procedures p Left L5 and S1 Laminectomy - Garrett Lim DO Height/Weight Height: 5 ft 10 in Weight: 102.7 kg Allergies Allergy/AdvReac Type Severity Reaction Status Date / Time No Known Allergies Allergy Mild Verified 03/15/24 11:36 Medications Home Medications Medication Instructions Recorded Confirmed Last Taken amlodipine 5 mg tablet 5 mg PO DAILY 04/18/18 07/08/24 05/06/18 05:00 loratadine 10 mg tablet (Claritin) 10 mg PO DAILY PRN ALLERGIES 04/18/18 07/08/24 05/05/18 lisinopril 20 mg tablet 20 mg PO DAILY 05/24/19 07/08/24 Unknown atorvastatin 20 mg tablet 80 mg PO DAILY 03/15/24 07/08/24 Unknown bupropion HCl 150 mg 24 hr tablet, 150 mg PO QAM 03/15/24 07/08/24 Unknown extended release metformin 500 mg tablet 1,000 mg PO QAM 03/15/24 07/08/24 Unknown sertraline 150 mg capsule 150 mg PO DAILY 03/15/24 07/08/24 Unknown aspirin 81 mg tablet,delayed 81 mg PO DAILY 07/08/24 07/08/24 Unknown release Active Medications Generic Name Dose Route Start Last Admin Trade Name Freq PRN Reason Stop Dose Admin Hydromorphone HCl 0.5 mg 07/08/24 08:53 07/08/24 17:20 Hydromorphone Inj 0.5 Mg/0.5 Ml Syr IV 07/22/24 08:52 0.5 mg Q15M PRN Administration Pain Hydromorphone HCl 1 mg 07/08/24 18:04 07/09/24 04:58 Hydromorphone Inj 1 Mg/Ml Syringe IV 07/22/24 18:03 1 mg Q3H PRN Administration severe pain (scale 7-10) Insulin Aspart 0 units 07/09/24 20:00 07/09/24 00:02 Insulin Aspart Per Unit Charge SC 08/08/24 19:59 Not Given Q6 RICARDO NPO Date Last Intake of Fluids: 07/08/24 Time Last Intake of Fluids: 22:30 Last Intake of Fluids Comment: 0 Date Last Intake of Solids: 07/08/24 Time Last Intake of Solids: 19:00 Past Medical History Medical History IBS (irritable bowel syndrome) Back pain CHRONIC Anxiety Diabetes mellitus, type 2 Sleep apnea "CANNOT TOLERATE" CPAP Hypertension Past Family History Family History Grandmother Family history of diabetes mellitus Grandfather Family history of diabetes mellitus Family/Other Cancer Family/Other Hypertension Past Surgical History Surgical History Hx of melanoma excision left shoulder w/ lymph node removal Hx of wisdom tooth extraction Hx of tonsillectomy Social History Smoking Status: Never smoker Do You Dip or Chew Tobacco: No Hx Alcohol Use: Yes Alcohol type: beer alcohol intake frequency: holidays/special occasions only Hx Substance Use: No substance use type: does not use Physical Exam Vital Signs Last Vital Signs Temp 97.7 F 07/09/24 08:56 Pulse 75 07/09/24 08:56 Resp 20 07/09/24 08:56 BP 163/94 H 07/09/24 08:56 Pulse Ox 95 07/09/24 08:56 O2 Del Method Room Air 07/09/24 08:56 Testing Laboratory Results 07/08/24 08:40 07/08/24 08:40 Hemoglobin A1c 6.0 % (4.5-5.6) H 07/08/24 08:40 07/09/24 07/09/24 05:51 00:10 POC Glucose 167 H 134 H
[2024-07-09] MEDS ORDERED: ONDANSETRON INJ 2 MG/ML 2 ML VIAL IV PRN ×2 (09:26→11:51)
[2024-07-09] MEDS ORDERED: fentaNYL citrate PF 100 MCG/2 ML VIAL IV PRN (09:26)
[2024-07-09] MEDS ORDERED: ATROPINE SULFATE 0.1 MG/ML 10ML SYR IV PRN (09:26)
[2024-07-09] MEDS ORDERED: ePHEDrine sulfate 50 MG/ML AMP IV PRN (09:26)
[2024-07-09] MEDS: ceFAZolin 3000MG 3,000 MG/72.5 ML BAG IV SCH (09:34)
[2024-07-09] MEDS: BUPIVACAINE/EPINEPHRINE 0.25% 1:200,000 30 ML VIAL ONE (09:35)
[2024-07-09] MEDS ORDERED: DexMEDEtomidine HCL IV 100 MCG/ML VIAL IV ONE (09:52)
--- NOTE | 2024-07-09 10:06 | Pharmacy Report ---
Pharmacy Glycemic Short Note 2 - Date of Service July 09, 2024 - Glycemic Short BSG Results (Last 24 hours): 07/08/24 07/09/24 07/09/24 20:36 00:10 05:51 POC Glucose 166 H 134 H 167 H 07/09/24 09:20 POC Glucose 139 H OUTPATIENT ANTIDIABETIC REGIMEN: * Metformin 1000mg daily HbA1c 6% on 07/08/24 ASSESSMENT: * 44 year old male admitted 07/08 for lumbar disc herniation with radiculopathy. Patient scheduled for laminectomy today (POD#0). Pharmacy has been consulted for glycemic management while he is admitted. * Patient has been NPO since yesterday for surgery today. Preop BSG was 167m g/dl and postop BSG was 171mg/dl. It appears that patient got 8mg of IV dexamethasone preop. Will give lantus 10 units x 1 now (~0.1 units/kg). * A weight based bolus insulin regimen with a stress of 2 was started last evening, though no insulin has been charted as given as of this morning. Overnight checks have been added for this evening in case BSG contines to rise. PLAN FOR INPATIENT GLYCEMIC CONTROL: * Hold outpatient oral diabetes medications * Basal insulin * 10 units x 1 postop * Bolus insulin * NovoLog per scale ACHS or Q6hrs while NPO * Goal Range: Low 110 mg/dL - High 140 mg/dL * Correction Factor: 25 mg/dL/unit * Nutritional / Prandial insulin per carb ratio of 1 unit per 8 grams CHO consumed
[2024-07-09] MEDS ORDERED: SUGAMMADEX SODIUM 200 MG/2 ML VIAL IV ONE (10:14)
[2024-07-09] MEDS: FLOSEAL HEMOSTATIC MATRIX 10ML TOP ONE (10:33)
[2024-07-09] MEDS: ceFAZolin 330 MG/ML 1 GM VIAL ONE (10:33)
--- NOTE | 2024-07-09 10:44 | Operative Report ---
Post Operative Report Pre & Post Diagnosis Operation Date: 07/09/24 07:45 Pre-Op Diagnosis: Lumbar disc herniation with radiculopathy Post-Op Diagnosis: Lumbar disc herniation with radiculopathy I identified the patient and participated in the time-out.: Yes Procedure Operation Date: 07/09/24 07:45 Actual Procedures #1 lumbar laminotomy L5-S1 left with excision of herniated free fragment. #2 placement of versa wrap over the exposed dura. Surgeon Garrett Lim DO Ditch Repairer None Estimated Blood Loss 10 Findings Consistent with Post-Op Diagnosis Specimens None Indications This is a 44-year-old male who presents with above-mentioned diagnosis. Patient presents with severe radiculopathy motor deficits requiring IV narcotics for pain control and subsequently specially recommended emergent laminectomy L5-S1. Description of Procedure Patient was met identified informed consent obtained. Patient was then taken to the operative suite underwent intubation placed in a prone position the Samson table atop the Burak frame. All bony prominences well-padded eyes inspected to ensure no external pressure placed upon them. This point lumbar spine was prepped and draped in a sterile fashion. The assistance of fluoroscopy notified L5-S1 to space. Midline incision was created overlying this region. Sharp dissection with the assistance of Bovie cautery from down to and exposing the interlaminar space at L5 on the left. A small laminotomy was created and I excised the lateral portion of ligamentum flavum to expose a markedly compressed traversing S1 nerve root. I was then able to mobilize it medially explored the axillary region identifying large fragments of disc material in this region. They were removed without difficulty. I was then able to mobilize the nerve root without difficulty. The area was explored several times to ensure all loose fragments addressed. Was then copiously irrigated versa wrap placed over the exposed dura. The incision then closed with subcutaneous Vicryl and 4 Monocryl for final skin closure. Steri-Strips sterile dressing placed. Patient waken taken PACU stable condition. I attest to the content of the Intraoperative Record and any orders documented therein. Any exceptions are noted below.
--- NOTE | 2024-07-09 10:53 | Fluoroscopy Report ---
FL spine 1V any level CLINICAL HISTORY: L5-S1 LAMI TECHNIQUE: 1 views were obtained with the C-arm in the OR with the above procedure. Total fluoroscopy time was 3.2 seconds. Radiation dose was 2.07 mGy. Comparison: Comparison is made to MRI lumbar spine 07/08/2024 FINDINGS/IMPRESSION: Intraoperative images were obtained of L5-S1 laminectomy. Please correlate with intraoperative fluoroscopy and operative report. ACT 112: Negative or not required by law. Electronically signed by: Pool Barbour M.D. 07/09/2024 10:52 AM
--- NOTE | 2024-07-09 11:21 | Anesthesiology Progress Note ---
Date of Service July 09, 2024 Anesthesia Post Procedure Vital Signs Vital Signs: Temp Pulse Pulse Resp BP BP Pulse Ox 07/09/24 11:15 78 12 125/80 92 07/09/24 11:05 72 19 135/87 94 07/09/24 10:56 97.0 F L 89 16 141/80 H 99 07/09/24 08:56 97.7 F 75 20 163/94 H 95 07/09/24 05:51 57 L 153/80 H 07/08/24 19:30 97.9 F 64 16 156/96 H 95 07/08/24 18:26 97.5 F L 76 20 171/87 H 96 07/08/24 16:00 68 16 154/69 H 94 07/08/24 14:38 88 18 145/80 H 94 07/08/24 12:00 88 20 155/94 H 96 O2 Del Method O2 Flow Rate 07/09/24 11:15 Room Air 8 07/09/24 11:05 Oxymask 8 07/09/24 10:56 Oxymask 8 07/09/24 08:56 Room Air 07/09/24 05:51 07/08/24 19:30 Room Air 07/08/24 18:26 Room Air 07/08/24 16:00 Room Air 07/08/24 14:38 Room Air 07/08/24 12:00 Room Air Pain Intensity Back: Pain Intensity: 5 Transfer of Care Handoff Completed per policy Notes Mental Status: alert / awake / arousable and participated in evaluation Patient Amnestic to Procedure: Yes Nausea / Vomiting: adequately controlled Pain: adequately controlled Airway Patency, RR, SpO2: stable & adequate BP & HR: stable & adequate Hydration State: stable & adequate Anesthetic Complications: no major complications apparent and Pt Satisfied with anesthetic care
[2024-07-09] MEDS ORDERED: NALOXONE HCL 0.4 MG/1 ML VIAL/CARP IV PRN (11:51)
[2024-07-09] MEDS ORDERED: FAMOTIDINE 20 MG TAB PO PRN (11:51)
[2024-07-09] MEDS ORDERED: MAGNESIUM HYDROXIDE SUSP 30 ML UDC PO PRN (11:51)
[2024-07-09] MEDS ORDERED: bisacodyL 10 MG SUPP PR PRN (11:51)
[2024-07-09] MEDS ORDERED: KETOROLAC 30 MG/ML VIAL IV PRN (11:51)
[2024-07-09] MEDS ORDERED: DO NOT ADMINISTER PNEUMOCOCCAL VACCINE PRN (11:51)
[2024-07-09] MEDS ORDERED: DO NOT ADMINISTER FLU VACCINE PRN (11:51)
[2024-07-09] MEDS ORDERED: ALUMINUM/MAGNESIUM SUSP 30 ML UDC PO PRN (11:51)
[2024-07-09] MEDS ORDERED: METOCLOPRAMIDE HCL INJ 5 MG/ML 2 ML VIAL IV PRN (11:51)
[2024-07-09] MEDS ORDERED: LORazepam 2 MG/1 ML VIAL IV PRN (11:51)
[2024-07-09] MEDS ORDERED: diphenhydrAMINE Capsule 25 MG CAP PO PRN (11:51)
[2024-07-09] MEDS ORDERED: ACETAMINOPHEN 1,000 MG/100 ML VIAL IV PRN (11:51)
[2024-07-09] MEDS ORDERED: PROMETHAZINE 12.5 MG/50.5 ML BAG IV PRN (11:51)
[2024-07-09] MEDS ORDERED: LORazepam 0.5 MG TAB PO PRN (11:51)
[2024-07-09] MEDS ORDERED: SOD PHOSPHATE/SOD BIPHOSPHATE ENEMA 132 ML BTL PR PRN (11:51)
[2024-07-09] MEDS ORDERED: ONDANSETRON 4 MG OD TAB PO PRN (11:51)
[2024-07-09] MEDS ORDERED: hydrOXYzine HCl 25 MG TAB PO PRN (11:51)
[2024-07-09] MEDS ORDERED: ACETAMINOPHEN 500 MG TAB PO PRN (11:51)
[2024-07-09] MEDS: LR 15ML/HR IV SCH (12:24)
[2024-07-09] MEDS: amLODIPine BESYLATE 5 MG TAB PO SCH (12:25)
[2024-07-09] MEDS: ATORVASTATIN 40 MG TAB PO SCH (12:25)
[2024-07-09] MEDS: SERTRALINE HCL 100 MG TABLET PO SCH (12:26)
[2024-07-09] MEDS: SERTRALINE HCL 50 MG TABLET PO SCH (12:26)
[2024-07-09] MEDS: buPROPion XL 150 MG TABCR PO SCH (12:26)
[2024-07-09] MEDS: LANTUS PER UNIT CHARGE SC ONE (13:17)
[2024-07-09] MEDS: oxyCODONE HCL IR 5 MG TAB (IMMEDIATE RELEASE) PO PRN (13:18)
[2024-07-09 14:34] VITALS: TEMP 98.1
[2024-07-09 15:29] VITALS: PULSE 65; RESP 18; O2SAT 93
[2024-07-09 17:07] VITALS: BP 163/92
[2024-07-09] MEDS: traMADol HCL 50 MG TABLET PO PRN (17:12)
[2024-07-09] MEDS ORDERED: PERCOCET 5/325MG HOMEPACK PO ONE (18:08)
[2024-07-09] MEDS ORDERED: DOCUSATE SODIUM/SENNA 50/8.6MG TAB PO SCH (21:00)
[2024-07-10] MEDS ORDERED: POLYETHYLENE (MIRALAX) 17 GM PACK PO SCH (06:00)
== END 2024-07-09 18:42 | disposition home or self-care (01) ==
LOC: ED 08:18 → 3N 08:18